=== PATIENT | male | born 1995 | race Caucasian/White ===

== ENCOUNTER → 2016-10-28 | Outpatient (CLI) | payer OTHER, SELFPAY ==
[~2016-10-28] MED LIST: CHAN1PAK9
--- NOTE | 2016-10-28 20:26 | REP ---
Left hand series: Four views: History: Left hand pain. Findings: Four views of the left hand demonstrate overall normal mineralization. Bones, joints, and soft tissues are unremarkable. Impression: Negative left hand series. Signed by Homero Blackman MD 10/29/2016 07:54 A
--- NOTE | 2016-10-28 20:27 | REP ---
Right shoulder series: Three views: History: Right shoulder pain. Findings: The right glenohumeral and acromioclavicular joints are normally aligned. Periarticular soft tissues are unremarkable. No fracture or subluxation is seen. Impression: Negative right shoulder series. Signed by Homero Blackman MD 10/29/2016 07:54 A
== END ==
LOC: M LRY 19:06
PROVIDERS: ATTEND Physician Assistant
DX: M79.642 Pain in left hand (principal); S49.91XA Unspecified injury of right shoulder and upper arm, initial encounter; X58.XXXA Exposure to other specified factors, initial encounter; Y92.9 Unspecified place or not applicable; Y93.9 Activity, unspecified; Y99.9 Unspecified external cause status

== ENCOUNTER 2016-10-29 12:42 | Emergency (ER) | payer OTHER, SELFPAY ==
[~2016-10-29] VITALS: Ht 188 cm; Wt 100.0 kg
[2016-10-29] MEDS ORDERED: CHAN1PAK9 (12:51)
--- NOTE | 2016-10-29 14:47 | REP ---
Lumbar spine series: Five views. History: Trauma. Findings: Lumbar vertebral body heights are preserved. Alignment is normal. Pedicles and posterior elements are intact. Psoas margins are symmetric. Sacrum and SI joints are intact. Visualized bowel gas pattern is normal. Impression: Negative lumbar spine radiographs. Signed by Homero Blackman MD 10/29/2016 03:58 P
--- NOTE | 2016-10-29 14:47 | REP ---
Bilateral scapular views. Four views. History: Trauma. Findings: The glenohumeral and acromioclavicular joints are normally aligned bilaterally. No scapular, humeral or clavicular fracture is seen on either side. No rib fracture is visible. Impression: Negative bilateral scapular views. Signed by Homero Blackman MD 10/29/2016 03:58 P
[2016-10-29 14:56] VITALS: BP 133/87
--- NOTE | 2016-10-29 15:02 | REP ---
THORACIC SPINE SERIES: THREE VIEWS HISTORY: Trauma. FINDINGS: AP and lateral views show preserved thoracic vertebral body heights and normal alignment. There is a mild S-shaped curvature. Pedicles and posterior elements are intact. No fracture or collapse is seen. No paravertebral swelling is seen. IMPRESSION: No traumatic abnormality noted. Signed by Homero Blackman MD 10/29/2016 03:58 P
--- NOTE | 2016-10-30 07:16 | REP ---
CT Head without contrast HISTORY: Headache COMPARISON: None There is no intraparenchymal hemorrhage, acute infarct, mass or midline shift. The ventricular system is normal in appearance. There is no extra cerebral collection. There is no fracture. The visualized sinuses are clear. IMPRESSION: There is no intracranial lesion. Signed by Cosmo Carroll MD 10/29/2016 01:51 P
== END 2016-10-29 15:11 | disposition home or self-care (01) ==
LOC: M ED 12:42
DX: S23.3XXA Sprain of ligaments of thoracic spine, initial encounter (principal); S33.5XXA Sprain of ligaments of lumbar spine, initial encounter; S09.90XA Unspecified injury of head, initial encounter; V44.6XXA Car passenger injured in collision with heavy transport vehicle or bus in traffic accident, initial encounter; Y92.410 Unspecified street and highway as the place of occurrence of the external cause; Y93.9 Activity, unspecified; Y99.8 Other external cause status; Z87.891 Personal history of nicotine dependence; Z79.899 Other long term (current) drug therapy